=== PATIENT | female | born 1990 | race Caucasian/White ===

== ENCOUNTER 2017-02-15 21:26 | Emergency (ER) | payer OTHER ==
[~2017-02-15] VITALS: Ht 157.5 cm; Wt 57.4 kg
[2017-02-15] MEDS ORDERED: ALTAVERA1 EACH PO (23:16)
[2017-02-15] MEDS ORDERED: PROAIR HFA8.5 GM IH (23:16)
[2017-02-15] MEDS ORDERED: FLUTICASONE PRO16 GM BOTH NARES (23:16)
[2017-02-15] MEDS ORDERED: ROBITUSSIN AC,T10 ML PO (23:34)
[2017-02-15] MEDS ORDERED: ZITHROMAX Z-PA250 MG PO (23:34)
[2017-02-15] MEDS ORDERED: MEDROL DOSEPAK4 MG PO (23:34)
[2017-02-16 00:15] VITALS: BP 106/71
== END 2017-02-16 00:21 | disposition home or self-care (01) ==
LOC: EME 21:26
DX: J20.9 Acute bronchitis, unspecified (principal)
CPT/HCPCS: 71020; 94640; 99281; 99285; J2930; J7030

== ENCOUNTER 2018-02-23 16:24 | Emergency (ER) | payer OTHER, BC ==
[~2018-02-23] VITALS: Ht 154.9 cm; Wt 58.1 kg
[~2018-02-23 16:24] MED LIST: ALTAVERA1 EACH PO; FLUTICASONE PRO16 GM BOTH NARES; MEDROL DOSEPAK4 MG PO; PROAIR HFA8.5 GM IH; ROBITUSSIN AC,T10 ML PO; ZITHROMAX Z-PA250 MG PO
[2018-02-23] MEDS ORDERED: MOTRIN800 MG PO (19:12)
[2018-02-23] MEDS ORDERED: FLEXERIL10 MG PO (19:12)
[2018-02-23 19:27] VITALS: BP 128/73
== END 2018-02-23 19:31 | disposition home or self-care (01) ==
LOC: EME 16:24 → RME 16:24
DX: S16.1XXA Strain of muscle, fascia and tendon at neck level, initial encounter (principal); V43.52XA Car driver injured in collision with other type car in traffic accident, initial encounter; Y92.410 Unspecified street and highway as the place of occurrence of the external cause; Z79.51 Long term (current) use of inhaled steroids
CPT/HCPCS: 70450; 72125; 99281; 99283